=== PATIENT | female | born 1955 | race Caucasian/White ===

== ENCOUNTER 2017-06-18 13:46 | Outpatient (CLI) | payer OTHER ==
--- NOTE | 2017-07-09 15:48 | MMO ---
BILATERAL SCREENING MAMMOGRAM: Date: 06/18/17 COMPARISON: None. HISTORY: Screening examination. FINDINGS: This patient's mammogram was interpreted with the assistance of computer-aided detection. Scattered fibroglandular densities are present. There is an oblong focal asymmetry within the right breast on MLO imaging posteriorly measuring appro ximately 1.8 cm in greatest dimension. Benign calcification is seen on the left. A questionable correlate for the findings seen on right MLO imaging is seen medially on CC view. IMPRESSION: BIRADS 0: Incomplete: Need Additional Imaging Evaluation and/or Prior Mammograms for Comparison Focal asymmetry noted on right MLO imaging with possible medial correlate on CC view. Recommend spot magnification compression imaging and focused breast ultrasound. The facility will notify the patient of the need for additional imaging services. POS: [facility]
== END 2017-06-18 13:47 | disposition home or self-care (01) ==
LOC: SCSMAMMO 13:46
PROVIDERS: ATTEND Internal Medicine
DX: Z12.31 Encounter for screening mammogram for malignant neoplasm of breast (principal)
CPT/HCPCS: 77067

== ENCOUNTER 2017-07-16 10:07 | Outpatient (CLI) | payer OTHER | END 2017-07-16 10:08 | disposition home or self-care (01) | LOC: BICMAMMO 10:07 | PROVIDERS: ATTEND Internal Medicine | DX: R92.2 Inconclusive mammogram (principal) | CPT/HCPCS: G0279 ==

== ENCOUNTER 2017-07-23 12:29 | Outpatient (CLI) | payer OTHER ==
--- NOTE | 2017-07-23 12:57 | RAD ---
TWO VIEWS OF THE CHEST: COMPARISON: None. HISTORY: Dyspnea. FINDINGS: Two views of the chest show normal sized cardiomediastinal silhouette. There is no evidence of consol idation, mass, or pleural effusion. The bones are unremarkable. IMPRESSION: No evidence of acute cardiopulmonary disease. POS: [facility]
== END 2017-07-23 12:30 | disposition home or self-care (01) ==
LOC: RAD 12:29
PROVIDERS: ATTEND Internal Medicine
DX: R06.00 Dyspnea, unspecified (principal)
CPT/HCPCS: 71046

== ENCOUNTER 2018-01-25 13:32 | Outpatient (CLI) | payer OTHER ==
--- NOTE | 2018-01-25 15:18 | ULT ---
LIMITED RIGHT BREAST ULTRASOUND: 01/25/2018 PROVIDED CLINICAL HISTORY: Followup right breast mass. COMPARISON: 07/16/2017 FINDINGS: Limited sonographic interrogation at the 2 o'clock position of the right breast redemonstrates a mild ly complex, septated, cystic structure, measuring approximately 1.6 cm in greatest dimension. No sig nificant interval change with respect to prior. IMPRESSION: BI-RADS category 3-Probably benign findings. The patient will be due for annual bilateral mammography in six months, which should be scheduled as a diagnostic mammogram, with possible ultrasound. POS: [facility]
== END 2018-01-25 13:33 | disposition home or self-care (01) ==
LOC: BICULT 13:32
PROVIDERS: ATTEND Internal Medicine
DX: R92.8 Other abnormal and inconclusive findings on diagnostic imaging of breast (principal)

== ENCOUNTER 2018-02-16 13:02 | Outpatient (CLI) | payer OTHER ==
--- NOTE | 2018-02-16 15:09 | CT ---
CT ABDOMEN AND PELVIS WITH CONTRAST: Comparison: 10-26-17 History: Abdominal pain. History of Crohn's disease and diverticulosis as well as endometrial cancer. Patient states that abdominal pain is all over. Technique: Multiple contiguous axial images were obtained in a CT of the abdomen and pelvis with cont rast. PO contrast was administered. Coronal reformats were performed. FINDINGS: The gallbladder has been removed. The patient is status post hysterectomy. The liver, kidneys, adrena l glands, spleen, and pancreas are unremarkable. There is a small hyperdensity within the common bile duct which is nonspecific but could represent a common bile duct stone. There is no significant bili aruna dilatation. There is scattered diverticula in the sigmoid colon. The small bowel is unremarkable. No abdominal or pelvic lymphadenopathy are seen. Degenerative changes are seen in the spine. The visualized inferior thorax and abdominal wall soft ti ssues are unremarkable. IMPRESSION: 1. No evidence of acute intraabdominal/pelvic abnormality. 2. Possible small common bile duct stone. POS: [facility]
[2018-02-16] MEDS ORDERED: ISOVUE-370 76%-LOCM 1 ML ONE (15:54)
== END 2018-02-16 13:03 | disposition home or self-care (01) ==
LOC: BICCT 13:02
PROVIDERS: ATTEND Internal Medicine
DX: R10.9 Unspecified abdominal pain (principal)
CPT/HCPCS: 74177

== ENCOUNTER 2018-05-07 15:24 | Emergency (ER) | payer OTHER, SELFPAY ==
[~2018-05-07 15:24] MED LIST: ISOVUE-370 76%-LOCM 1 ML ONE
[2018-05-07 16:24] LABS: #Lymphocytes 0.8 thou/uL (1.20-3.40); #Monocytes 0.4 thou/uL (0.11-0.59); #Neutrophils 10.1 thou/uL (1.40-6.50); %Basophils 0.3 % (0.0-1.0); %Lymphocytes 7.2 % (21.0-51.0); %Monocytes 3.4 % (0.0-10.0); %Neutrophils 89.1 % (42.0-75.0); Hemoglobin 15.7 g/dL (12.0-16.0); Mean Corpuscular HGB CONC 33.2 g/dL (32.0-36.0); Mean Corpuscular Hemoglobin 30.5 pg (27.0-31.0); Mean Corpuscular Volume 91.9 fL (78.0-98.0); Mean Platelet Volume 7.3 fL (7.4-10.4); Platelet Count 337 thou/uL (130-400); RBC Distribution Width 11.9 % (11.5-14.5); Red Blood Cell (RBC) Count 5.15 mill/uL (4.20-5.40); White Blood Cell (WBC) Count 11.4 thou/uL (4.8-10.8)
[2018-05-07 16:48] LABS: ALT (SGPT) 29 U/L (8-55); AST (SGOT) 25 U/L (5-34); Albumin 4.5 g/dL (3.4-4.8); Alkaline Phosphatase 89 U/L (40-150); Anion Gap 14 mmol/L (10-20); BUN (Urea Nitrogen) 16 mg/dL (9.8-20.1); Bilirubin, Total 0.8 mg/dL (0.2-1.2); Calc. Creatinine Clearance 0 mL/min (70-130); Calcium 9.6 mg/dL (7.8-10.44); Carbon Dioxide 24 mmol/L (23-31); Chloride 106 mmol/L (98-107); Estimated GFR-MDRD 49; Globulin 3.5 g/dL (2.4-3.5); Glucose 108 mg/dL (80-115); Lipase 25 U/L (8-78); Potassium 3.9 mmol/L (3.5-5.1); Sodium 140 mmol/L (136-145)
[2018-05-07] MEDS ORDERED: Ondansetron PF 4 MG/2 ML Vial ONE (17:49)
[2018-05-07] MEDS ORDERED: Morphine 4 MG/ML VIAL ONE ×2 (18:19→18:20)
[2018-05-07 18:47] LABS: Bilirubin Small (Negative); Blood, Urine Negative (Negative); Clarity CLEAR (Clear); Glucose, Urine (Dipstick) Negative (Negative); Leukocyte Negative (Negative); Nitrite Negative (Negative); Protein, Urine (Dipstick) 30 mg/dL (Neg-Trace); Specific Gravity, Urine 1.028 (1.002-1.036); Urobilinogen 0.2 mg/dL (0.2-1.0); pH, Urine 5.5 (5.0-9.0)
[2018-05-07 18:49] LABS: Bacteria/HPF None Seen HPF (None Seen); Hyaline Casts/LPF 4-6 HYALINE CAST LPF (0-3 Hyaline); Pathc Cast-AUWi Flag 1.01 (0-2.49); Squamous Epithelial 0-3 HPF (0-3); WBC/HPF 0-3 HPF (0-3)
[2018-05-07 19:11] LABS: RBC/HPF 0-3 HPF (0-3)
--- NOTE | 2018-05-07 19:57 | CT ---
CT ABDOMEN AND PELVIS WITH IV CONTRAST 05/07/18 HISTORY: Abdominal pain. Nausea and vomiting. COMPARISON: 02/16/18. FINDINGS: Lung bases are clear. Gallbladder is not visualized, presumed surgically absent. Common duct is now d ecompressed without stone apparent. No enlarged lymph nodes or free fluid. No evidence of bowel inflammation or obstruction. Appendix is not inflamed. IMPRESSION: No significant abnormalities are demonstrated. POS: [facility]
== END 2018-05-07 20:34 | disposition home or self-care (01) ==
LOC: ERS 15:24
DX: E86.0 Dehydration (principal); J45.909 Unspecified asthma, uncomplicated; K58.9 Irritable bowel syndrome, unspecified; F32.9 Major depressive disorder, single episode, unspecified
CPT/HCPCS: 36415; 74177; 80053; 81003; 81015; 83690; 85025; 96361; 96374; J2270; J2405; Q9966

== ENCOUNTER 2018-07-09 11:09 | Outpatient (CLI) | payer OTHER ==
--- NOTE | 2018-07-09 11:32 | RAD ---
F2 views chest: 07/09/2018 COMPARISON: 07/23/2017 HISTORY: Hiatal hernia FINDINGS: Heart and mediastinal contours are stable. No pneumothorax or pleural fluid. No focal conso lidation or alveolar edema. No radiographic evidence of hiatal hernia noted. IMPRESSION: No acute findings.
== END 2018-07-09 11:10 | disposition home or self-care (01) ==
LOC: BICRAD 11:09
PROVIDERS: ATTEND Internal Medicine
DX: K44.9 Diaphragmatic hernia without obstruction or gangrene (principal)
CPT/HCPCS: 71046

== ENCOUNTER 2018-07-21 13:56 | Outpatient (CLI) | payer OTHER ==
--- NOTE | 2018-07-21 14:59 | MMO ---
Bilateral MAMMO Bilat Diag [facility]DI+JENNY. CLINICAL HISTORY: Patient is 63 years old and is seen for diagnostic exam. The patient has no family history of breast cancer. The patient has a history of uterine cancer at age 62. VIEWS: The views performed were: bilateral craniocaudal with tomosynthesis; bilateral mediolateral oblique with tomosynthesis; and bilateral mediolateral. FILMS COMPARED: The present examination has been compared to prior imaging studies performed at [facility] on 07/16/2017 and 07/21/2018, at [facility] on 06/18/2017, and at [facility] on 08/21/2010, 10/02/2010, 02/12/2013, 04/01/2014, 04/04/2015 and 03/28/2016. MAMMOGRAM FINDINGS: There are scattered fibroglandular densities. There is a stable oval mass with circumscribed margins seen in the right breast at 2 o'clock. The mass was shown to be a cyst on ultrasound. There are no suspicious masses, suspicious calcifications, or new areas of architectural distortion. IMPRESSION: THERE IS NO MAMMOGRAPHIC EVIDENCE OF MALIGNANCY. A ROUTINE FOLLOW-UP MAMMOGRAM IN 1 YEAR IS RECOMMENDED. THE RESULTS OF THIS EXAM WERE SENT TO THE PATIENT. ACR BI-RADS Category 2 - Benign finding MAMMOGRAPHY NOTE: 1. A negative mammogram report should not delay a biopsy if a dominant of clinically suspicious mass is present. 2. Approximately 10% to 15% of breast cancers are not detected by mammography. 3. Adenosis and dense breasts may obscure an underlying neoplasm.
--- NOTE | 2018-07-21 15:12 | ULT ---
RIGHT BREAST ULTRASOUND: COMPARISON: 01/25/2018. HISTORY: Right breast complex cyst versus cluster of cysts seen on prior ultrasound. Short interval followup exam. TECHNIQUE: Multiplanar manzanares scale and color Doppler images were obtained in a right breast ultrasound. FINDINGS: In the 2 o'clock position of the right breast approximately 3 cm from the nipple, there is a stable c luster of anechoic structures which likely represents a cluster of cysts. This measures 1.7 cm in gr eatest dimension. No suspicious shadowing or solid mass is seen. IMPRESSION: BIRADS category 2 - benign findings. Annual screening mammography is recommended. POS: [facility]
== END 2018-07-21 13:57 | disposition home or self-care (01) ==
LOC: BICMAMMO 13:56
PROVIDERS: ATTEND Internal Medicine
DX: N63.12 Unspecified lump in the right breast, upper inner quadrant (principal); Z85.42 Personal history of malignant neoplasm of other parts of uterus
CPT/HCPCS: 77066; G0279

== ENCOUNTER 2018-09-09 07:57 | Outpatient (CLI) | payer OTHER ==
--- NOTE | 2018-09-09 15:53 | NM ---
RADIONUCLIDE GASTRIC EMPTYING SCAN: HISTORY: Nausea, vomiting, unspecified. RADIOPHARMACEUTICAL: 2 mCi Technetium 99m sulfur colloid administered orally in scrambled eggs. FINDINGS: There is 37% emptying of the ingested gastric contents at 1 hours, 59% emptying at 2 hours, 63% empty ing at 3 hours, and 89% emptying at 4 hours. The calculated gastric emptying half-time measures 105 minutes. IMPRESSION: Delayed gastric emptying. POS: [facility]
== END 2018-09-09 07:58 | disposition home or self-care (01) ==
LOC: NM 07:57
DX: R11.2 Nausea with vomiting, unspecified (principal)
CPT/HCPCS: 78264; A9541

== ENCOUNTER 2018-11-03 08:52 | Outpatient (CLI) | payer OTHER | END 2018-11-03 08:53 | disposition home or self-care (01) | LOC: CP 08:52 | PROVIDERS: ATTEND Internal Medicine | DX: J45.909 Unspecified asthma, uncomplicated (principal) | CPT/HCPCS: 94060; 94727; 94729 ==

== ENCOUNTER 2018-12-08 11:33 | Outpatient (CLI) | payer OTHER ==
--- NOTE | 2018-12-08 13:47 | RAD ---
LEFT HAND THREE VIEWS: 12/08/18 HISTORY: Hand pain. Some mild arthritic changes of the first carpometacarpal joint space and first metacarpophalangeal audrey int. There is no signs of fracture. IMPRESSION: Mild arthritic changes of the hand. POS: [facility]
--- NOTE | 2018-12-08 13:48 | RAD ---
RIGHT HAND 3 VIEWS: Date: 12/08/18 HISTORY: Hand pain. FINDINGS: Some minimal arthritic changes are noted of the interphalangeal joints and some very minimal change o f the first metacarpophalangeal joint and triscaphe joint. No fracture or other findings. IMPRESSION: Minimal arthritic changes of the hand. POS: [facility]
--- NOTE | 2018-12-08 13:52 | RAD ---
CERVICAL SPINE 4 VIEWS: Date: 12/08/18 HISTORY: Neck pain with bilateral hand radiculopathy. FINDINGS: Straightening of the normal lordotic curvature. Disc space narrowing at the C5-6 and C6-7 levels. Min imal degenerative retrolisthesis at the C6-7 level. Osteophytosis throughout the lower vertebral bodi es and facets. Mild rightward convex curvature. No acute fracture or dislocation. Cervicothoracic andrea ction intact. IMPRESSION: Prominent osseous degenerative changes lower cervical spine. No acute osseous abnormalities demonstra isabel. If radicular or other neurologic symptoms are present, MRI cervical spine may be warranted. POS: [facility]
== END 2018-12-08 11:34 | disposition home or self-care (01) ==
LOC: BICRAD 11:33
PROVIDERS: ATTEND Internal Medicine
DX: M54.2 Cervicalgia (principal); M79.641 Pain in right hand; M79.642 Pain in left hand; M47.812 Spondylosis without myelopathy or radiculopathy, cervical region; M19.042 Primary osteoarthritis, left hand; M19.041 Primary osteoarthritis, right hand
CPT/HCPCS: 72040

== ENCOUNTER 2018-12-23 15:28 | Outpatient (CLI) | payer OTHER ==
--- NOTE | 2018-12-23 16:27 | RAD ---
LUMBAR SPINE RADIOGRAPHS 2 VIEWS: Date: 12/23/18 PROVIDED CLINICAL HISTORY: Lumbar radiculopathy. FINDINGS: Five non-rib bearing lumbar-type vertebral bodies are present. Lumbar alignment appears normal. Verte bral body heights are preserved. Intervertebral disc space heights appear preserved. Mild end plate d egenerative change. Mild lower lumbar facet arthritis. Pedicles appear intact. IMPRESSION: Mild lumbar degenerative change. POS: [facility]
--- NOTE | 2018-12-23 16:28 | RAD ---
RIGHT KNEE 4 VIEWS: Date: 12/23/18 PROVIDED CLINICAL HISTORY: Pain. FINDINGS: No evidence for fracture or other acute osseous abnormality. Alignment appears anatomic. Joint spaces appear preserved. IMPRESSION: No evidence for an acute osseous abnormality or significant arthropathy. POS: [facility]
--- NOTE | 2018-12-23 16:29 | RAD ---
LEFT KNEE 4 VIEWS: Date: 12/23/18 PROVIDED CLINICAL HISTORY: Pain. FINDINGS: No evidence for fracture or other acute osseous abnormality. Alignment appears anatomic. Joint spaces appear preserved. No evidence for significant knee joint capsular distention. IMPRESSION: No evidence for an acute osseous abnormality or significant arthropathy. POS: [facility]
== END 2018-12-23 15:29 | disposition home or self-care (01) ==
LOC: BICRAD 15:28
PROVIDERS: ATTEND Internal Medicine
DX: M47.26 Other spondylosis with radiculopathy, lumbar region (principal); M25.562 Pain in left knee; M25.561 Pain in right knee
CPT/HCPCS: 72100

== ENCOUNTER 2019-01-21 10:19 | Outpatient (CLI) | payer OTHER ==
--- NOTE | 2019-01-21 12:56 | MRI ---
MRI OF CERVICAL SPINE WITHOUT CONTRAST: INDICATION: Myelopathy. Neck pain. Bilateral hand and arm pain. FINDINGS: Cervical vertebrae maintain height and alignment. Vertebral body signal is normal. There is a verte bral body hemangioma at T2 vertebra. Mild loss of disk space and moderate degenerative change at C5-6 and C6-7. Anterior and lateral oste ophytes at thee levels. At C2-3, no significant disk bulge or spondylosis. At C3-4, there is a broad-based disk bulge with spondylosis which abuts and mildly flattens the anter ior cord. No significant foraminal stenosis apparent. At C4-5, mild disk bulge and spondylosis efface the anterior subarachnoid space. No cord impingement . No foraminal stenosis. At C5-6, diffuse disk bulge and spondylosis impinge on a mildly flattened anterior cord. Mild bilate ral foraminal narrowing due to disk bulge and uncinate hypertrophy. At C6-7, disk bulge and spondylosis abut and mildly flatten the anterior cord. Asymmetric disk bulge and spondylitic change to the right is seen encroaching into the right foramina. There is also left foraminal encroachment due to disk bugle and uncinate hypertrophy. These changes may impinge on bot h of the exiting C7 nerve roots. Cord signal appears normally preserved. IMPRESSION: Prominent disk bulge and spondylitic change at C3-4, C5-6, and C6-7 levels. Cord impingement is most pronounced at C5-6. There is foraminal encroachment as described above. POS: [facility]
== END 2019-01-21 10:20 | disposition home or self-care (01) ==
LOC: TBSIIMAG 10:19
PROVIDERS: ATTEND Psychiatry & Neurology Neurology
DX: G95.9 Disease of spinal cord, unspecified (principal); M46.92 Unspecified inflammatory spondylopathy, cervical region; M25.80 Other specified joint disorders, unspecified joint; M50.81 Other cervical disc disorders, high cervical region
CPT/HCPCS: 72141

== ENCOUNTER 2019-08-04 12:35 | Outpatient (CLI) | payer OTHER ==
--- NOTE | 2019-08-04 14:26 | CT ---
CT ABDOMEN AND PELVIS: DATE: 08/04/2019. PROVIDED CLINICAL HISTORY: Hematuria. FINDINGS: Comparison is made with the study dated 05/07/2018. The visualized lung bases are free of significant opacity. There is diffuse fatty infiltration of the liver. There is a stable right renal cyst. There is no e vidence for hydronephrosis. There is a tiny nonobstructing inferior pole left renal calculus. The s olid abdominal organs demonstrate an otherwise unremarkable CT appearance. Numerous sigmoid colonic diverticula are seen. There is inflammatory fat stranding seen about the pr oximal sigmoid colon with several foci of extraluminal gas. There is no evidence for free intraperit samuel air or a focal fluid collection to suggest abscess. There is no bowel dilatation, additional inflammatory fat stranding, or free fluid apparent. The osseous structures demonstrate no concerning lytic or blastic lesions. Partial ankylosis of each SI joint is noted, compatible with arthropathy associated with the provided clinical history of Croh n's disease. The delayed images demonstrate no evidence for filling defects involving the renal collecting systems , ureters, or urinary bladder. IMPRESSION: 1. Findings compatible with perforated sigmoid diverticulitis. No evidence for abscess. Findings c ommunicated to the referring clinician's office 2:05 p.m. 08/04/2019. 2. Tiny nonobstructing inferior pole left renal calculus. CODE CR POS: [facility]
== END 2019-08-04 12:36 | disposition home or self-care (01) ==
LOC: BICCT 12:35
PROVIDERS: ATTEND Internal Medicine
DX: R31.29 Other microscopic hematuria (principal); N20.0 Calculus of kidney
CPT/HCPCS: 74178

== ENCOUNTER 2019-08-04 15:08 | Inpatient (IN) | payer OTHER ==
[2019-08-04 16:24] LABS: #Basophils 0.1 thou/uL (0.0-0.2); #Eosinphils 0.1 thou/uL (0.0-0.7); #Lymphocytes 2.9 thou/uL (1.20-3.40); #Monocytes 1.1 thou/uL (0.11-0.59); #Neutrophils 8.7 thou/uL (1.40-6.50); %Basophils 1.1 % (0.0-1.0); %Eosinophils 0.7 % (0.0-10.0); %Lymphocytes 22.6 % (21.0-51.0); %Monocytes 8.3 % (0.0-10.0); %Neutrophils 67.2 % (42.0-75.0); Hemoglobin 13.8 g/dL (12.0-16.0); Mean Corpuscular Hemoglobin 31.5 pg (27.0-31.0); Mean Corpuscular Volume 95.4 fL (78.0-98.0); Mean Platelet Volume 6.9 fL (7.4-10.4); Platelet Count 271 thou/uL (130-400); RBC Distribution Width 12.7 % (11.5-14.5); Red Blood Cell (RBC) Count 4.37 mill/uL (4.20-5.40); White Blood Cell (WBC) Count 12.9 thou/uL (4.8-10.8)
[2019-08-04] MEDS ORDERED: Morphine 4 MG/ML VIAL ONE (16:40)
[2019-08-04] MEDS ORDERED: metroNIDAZOLE 500 MG/100 ML BAG ONE (16:42)
[2019-08-04 16:47] LABS: ALT (SGPT) 39 U/L (8-55); AST (SGOT) 24 U/L (5-34); Albumin 4.1 g/dL (3.4-4.8); Alkaline Phosphatase 50 U/L (40-110); Anion Gap 15 mmol/L (10-20); BUN (Urea Nitrogen) 12 mg/dL (9.8-20.1); Bilirubin, Total 1.3 mg/dL (0.2-1.2); Calc. Creatinine Clearance 0 mL/min (70-130); Calcium 9.5 mg/dL (7.8-10.44); Carbon Dioxide 25 mmol/L (23-31); Chloride 102 mmol/L (98-107); Estimated GFR-MDRD 53; Globulin 2.8 g/dL (2.4-3.5); Glucose 105 mg/dL (80-115); Potassium 3.4 mmol/L (3.5-5.1); Protein, Total 6.9 g/dL (6.0-8.3); Sodium 139 mmol/L (136-145)
[2019-08-04] MEDS ORDERED: Piperacillin/Tazobactam 4.5 GM VIAL ONE (18:53)
[2019-08-04] MEDS ORDERED: Morphine 2 MG/ML SYRINGE SLOW IVP PRN (19:11)
[2019-08-04] MEDS ORDERED: Ondansetron PF 4 MG/2 ML Vial IVP PRN (19:12)
[2019-08-04] MEDS ORDERED: Potassium Chloride 20 MEQ TAB PO SCH (19:30)
[2019-08-04] MEDS: Sodium Chloride 0.9% 1,000 ML IV SCH (21:01)
--- NOTE | 2019-08-04 21:33 | HP ---
CHIEF COMPLAINT: Abdominal pain. HISTORY OF PRESENT ILLNESS: The patient is a 64-year-old female with history of hypertension, peripheral neuropathy, and recurrent diverticulitis, who presented to the hospital with complaints of worsening lower abdominal pain since yesterday. Her symptoms were associated with nausea and vomiting. In the ER, her initial workup including CT scan of the abdomen and pelvis revealed diverticulitis with microperforation. Surgical service consulted and recommended medical management. REVIEW OF SYSTEMS: Negative except as noted in HPI. PAST MEDICAL HISTORY: Polyneuropathy, anxiety, hypertension, reactive airway disease, and recurrent diverticulitis. PAST SURGICAL HISTORY: Hysterectomy and cholecystectomy. ALLERGIES: KEFLEX AND SUCRALOSE. SOCIAL HISTORY: The patient denies alcohol, smoking, or illicit drug use. PHYSICAL EXAMINATION: GENERAL: The patient is alert and oriented x3. HEENT: Head is normocephalic and atraumatic. NECK: Supple. CHEST: Clear to auscultation bilaterally. CARDIAC: Revealed normal S1, S2. Regular rate and rhythm. ABDOMEN: Soft, tender in the left and right lower quadrants, nondistended, and bowel sounds are positive. NEUROLOGIC: Unremarkable. ASSESSMENT: 1. Sepsis. 2. Acute diverticulitis with microperforation. 3. Hypokalemia. 4. Dehydration. PLAN: We will admit the patient to the medical floor. Clear liquid diet. Start IV Zosyn and IV fluids. Morphine for pain and Zofran for nausea. We will follow the patient's progress and consult Surgery as needed. Job ID: [id number]
[2019-08-04 22:56] VITALS: BMI 37.3
[2019-08-05] MEDS: Piperacillin/Tazobactam 3.375 GM in Sodium Chloride 0.9% 100 ML IVPB SCH ×5 (00:59→23:38)
[2019-08-05] MEDS: Sodium Chloride 0.9% 1,000 ML IV SCH ×4 (04:00→20:09)
[2019-08-05 05:43] LABS: #Basophils 0.1 thou/uL (0.0-0.2); #Eosinphils 0.1 thou/uL (0.0-0.7); #Lymphocytes 1.4 thou/uL (1.20-3.40); #Monocytes 0.6 thou/uL (0.11-0.59); %Basophils 1.3 % (0.0-1.0); %Eosinophils 1.9 % (0.0-10.0); %Lymphocytes 18.7 % (21.0-51.0); %Monocytes 8.6 % (0.0-10.0); %Neutrophils 69.5 % (42.0-75.0); Hemoglobin 12.3 g/dL (12.0-16.0); Mean Corpuscular HGB CONC 34.8 g/dL (32.0-36.0); Mean Corpuscular Hemoglobin 33.2 pg (27.0-31.0); Mean Corpuscular Volume 95.3 fL (78.0-98.0); Platelet Count 203 thou/uL (130-400); RBC Distribution Width 12.5 % (11.5-14.5); Red Blood Cell (RBC) Count 3.69 mill/uL (4.20-5.40); White Blood Cell (WBC) Count 7.2 thou/uL (4.8-10.8)
[2019-08-05 06:01] LABS: Anion Gap 14 mmol/L (10-20); BUN (Urea Nitrogen) 8 mg/dL (9.8-20.1); Calc. Creatinine Clearance 109 mL/min (70-130); Calcium 8.2 mg/dL (7.8-10.44); Carbon Dioxide 23 mmol/L (23-31); Chloride 106 mmol/L (98-107); Estimated GFR-MDRD 71; Glucose 94 mg/dL (80-115); Potassium 3.7 mmol/L (3.5-5.1); Sodium 139 mmol/L (136-145)
[2019-08-05] MEDS: Enoxaparin Sodium 30 MG/0.3 ML SYRINGE SC SCH (08:21)
[2019-08-05] MEDS ORDERED: predniSONE 20 MG TAB PO SCH ×2 (09:00→10:30)
[2019-08-05] MEDS ORDERED: FLUTICASONE FUROATE EA NARE SCH (09:00)
[2019-08-05] MEDS ORDERED: Pantoprazole 40 MG GRANULES PACKET PO SCH ×2 (09:00→10:30)
[2019-08-05] MEDS ORDERED: Lisinopril 10 MG TAB PO SCH (09:00)
[2019-08-05] MEDS ORDERED: Fluticasone Propionate Nasal Spray 16 gm Bottle NASAL SCH (10:30)
[2019-08-05] MEDS: Lisinopril 10 MG TAB PO SCH (11:39)
[2019-08-05] MEDS: Escitalopram Oxalate 10 mg Tablet PO SCH (11:40)
[2019-08-05] MEDS: OXcarbazepine 300 MG TAB PO SCH ×2 (11:40→20:08)
--- NOTE | 2019-08-05 11:54 | PDOC.HOSPP ---
- Subjective Encounter Date: 08/05/19 Subjective: Feels better today. Tolerating liquid diet. - Objective Vital Signs & Weight: Vital Signs (12 hours) Temp Pulse Resp BP BP Pulse Ox 08/05/19 11:39 138/78 08/05/19 11:29 98.7 F 84 18 130/78 95 08/05/19 08:00 92 L 08/05/19 07:44 98.4 F 90 18 118/72 92 L 08/05/19 07:00 98.4 F 90 18 118/72 92 L 08/05/19 03:55 98.7 F 89 16 114/62 93 L Weight Weight 217 lb 3.2 oz Result Diagrams: 08/05/19 05:18 08/05/19 05:18 Hospitalist ROS - Medication Medications: Active Medications Generic Name Dose Route Start Last Admin Trade Name Freq PRN Reason Stop Dose Admin Enoxaparin Sodium 30 mg 08/05/19 09:00 08/05/19 08:21 Lovenox SC 30 mg 0900 OTIS Administration Escitalopram Oxalate 10 mg 08/05/19 09:00 08/05/19 11:40 Lexapro PO 10 mg DAILY OTIS Administration Piperacillin Sod/Tazobactam 100 mls @ 200 mls/hr 08/04/19 23:59 08/05/19 11: 41 Sod 3.375 gm/ Sodium Chloride IVPB 100 mls Q6HR OTIS Administration Sodium Chloride 1,000 mls @ 150 mls/hr 08/04/19 19:15 08/05/19 04:00 Normal Saline 0.9% IV 1,000 mls .[id number] OTIS Administration Lisinopril 10 mg 08/05/19 09:00 08/05/19 11:39 Zestril PO 10 mg DAILY OTIS Administration Morphine Sulfate 2 mg 08/04/19 19:11 08/05/19 06:19 Morphine SLOW IVP 2 mg Q4H PRN Administration Pain Oxcarbazepine 300 mg 08/05/19 09:00 08/05/19 11:40 Trileptal PO 300 mg BID OTIS Administration Pantoprazole Sodium 40 mg 08/05/19 10:30 08/05/19 11:39 Protonix PO 08/05/19 12:00 40 mg NOW OTIS Administration Prednisone 20 mg 08/05/19 10:30 08/05/19 11:39 Prednisone PO 08/05/19 12:00 20 mg NOW OTIS Administration - Exam General Appearance: NAD, awake alert ENT: normocephalic atraumatic Neck: supple, no JVD Heart: RRR Respiratory: normal chest expansion, no tachypnea Gastrointestinal: soft, non-distended, tender to palpation Neurological: cranial nerve grossly intact, no focal deficits Hosp A/P (1) Sepsis Code(s): A41.9 - SEPSIS, UNSPECIFIED ORGANISM Status: Acute (2) Acute diverticulitis Code(s): K57.92 - DVTRCLI OF INTEST, PART UNSP, W/O PERF OR ABSCESS W/O BLEED Status: Acute (3) Perforated diverticulum Code(s): K57.80 - DVTRCLI OF INTEST, PART UNSP, W PERF AND ABSCESS W/O BLEED Status: Acute - Plan Clinically improving. Leukocytosis resolved. Continue IV Zosyn and IVF. Clear liquid diet.
[2019-08-05] MEDS: Loratadine 10 MG TAB PO SCH (20:09)
--- NOTE | 2019-08-05 20:25 | CON ---
DATE OF CONSULTATION: 08/04/2019 CHIEF COMPLAINT: Perforated diverticulitis. HISTORY OF PRESENT ILLNESS: The patient is an obese, 64-year-old white female. She gives a history of diverticulitis, for which she was admitted to the hospital in approximately 2012. She has had at least one episode of fairly severe diverticulitis since then. She developed onset of lower abdominal pain became progressively severe over the past couple of days. A CT scan was obtained on an outpatient basis earlier yesterday. This revealed evidence of microperforated diverticulitis with obvious air that was extraluminal. She presented to the emergency room, where she underwent laboratory evaluation. She was admitted to the Hospitalist Service and I am seeing her in consultation regarding this. She tells me she has had several colonoscopies, most recently, she believes within the past couple of years. This was apparently performed in [place]. She tells me that she has no issues with constipation, but does have fairly significant problems with intermittent diarrhea. She also gives a recent history of hematuria. This was being evaluated by Dr. Newsome (her primary care physician). The patient was scheduled for an outpatient Urology evaluation in regard to the hematuria for this upcoming week. Review of her recent urinalysis reveal 4 to 6 red blood cells both in June and in July on her urinalysis. PAST MEDICAL HISTORY: 1. Polyneuropathy. 2. Anxiety. 3. Hypertension. 4. Reactive airway disease. 5. Recurrent diverticulitis. PAST SURGICAL HISTORY: 1. Hysterectomy performed in [place] in 2018. 2. Open cholecystectomy estimated 40 years ago. 3. Open surgery for bile duct reconstruction following her cholecystectomy. 4. Cataract surgery. 5. ERCP for a pancreatic duct stone. MEDICATIONS: Include: 1. Prednisone (for the polyneuropathy). 2. Lisinopril. 3. Escitalopram. 4. Pantoprazole. 5. Couple of other medications. ALLERGIES: KEFLEX AND SUCRALOSE. PERSONAL AND SOCIAL HISTORY: She is with one child. She does not smoke nor does she drink alcohol. She did formally smoked, but quit about 14 years ago. REVIEW OF SYSTEMS: Otherwise, unremarkable. FAMILY HISTORY: Noncontributory. PHYSICAL EXAMINATION: VITAL SIGNS: She is afebrile. Pulse is 84 and blood pressure 138/78. GENERAL: She is a well-developed, well-nourished, obese white female, resting in bed, in no acute distress. She is alert and oriented x3, and conversant. HEAD, EYES, EARS, NOSE, AND THROAT: Unremarkable. NECK: Supple. LUNGS: Clear to auscultation. CARDIAC: Regular rate and rhythm. ABDOMEN: Soft with hypoactive, but present bowel sounds. She has focal tenderness in the left lower quadrant with no significant tenderness elsewhere. She has well-healed incisions in her upper midline and right upper quadrant. EXTREMITIES: Unremarkable. LABORATORY DATA: Her white blood cell count of presentation yesterday afternoon was 12.9, it is down to 7.2 this morning. Her hemoglobin today is 12.3. Her platelet count is normal at 203. Her electrolytes are entirely normal as is her glucose and her lactic acid level. Her liver function tests are essentially normal. I reviewed her CT scan when she presented yesterday. This is clearly consistent with microperforated diverticulitis. ASSESSMENT AND PLAN: The patient with a second episode of microperforated diverticulitis. In light of the recurrent nature and the complication of her diverticulitis, taking in consideration of her chronic steroid use, I would certainly recommend an elective colectomy after this acute episode has resolved. I believe that she is resolving quickly with conservative management. She is on appropriate IV antibiotics and bowel rest. She may safely resume a clear liquid diet today. Advance her diet slowly over the next day or two while continued on IV antibiotics. When she is tolerating adequate oral intake with resolution of the vast majority of her pain, she will be ready for discharge home with a further course of oral antibiotics. I suspect it will be early next week (today is Thursday). I do not anticipate that she will require surgical care over the next few days and I will therefore see her again on Thursday. If she has surgical problems over the weekend, please contact Dr. Stuart. In regard to her hematuria, I have consulted Dr. Hess to see her and evaluate her as he feels appropriate. Job ID: [id number]
[2019-08-05] MEDS ORDERED: Non-Formulary Item 1 EACH (Levocetirizine Dihydrochloride [Levocetirizine Dihydrochloride PO SCH (21:00)
[2019-08-06 05:23] LABS: #Eosinphils 0.1 thou/uL (0.0-0.7); #Lymphocytes 1.6 thou/uL (1.20-3.40); #Monocytes 0.5 thou/uL (0.11-0.59); %Basophils 0.9 % (0.0-1.0); %Lymphocytes 30.7 % (21.0-51.0); %Neutrophils 56.5 % (42.0-75.0); Hemoglobin 12.3 g/dL (12.0-16.0); Mean Corpuscular HGB CONC 33.8 g/dL (32.0-36.0); Mean Corpuscular Hemoglobin 32.5 pg (27.0-31.0); Mean Corpuscular Volume 96.2 fL (78.0-98.0); Mean Platelet Volume 6.8 fL (7.4-10.4); Platelet Count 233 thou/uL (130-400); RBC Distribution Width 12.4 % (11.5-14.5); Red Blood Cell (RBC) Count 3.78 mill/uL (4.20-5.40); White Blood Cell (WBC) Count 5.2 thou/uL (4.8-10.8)
[2019-08-06 05:40] LABS: Anion Gap 11 mmol/L (10-20); BUN (Urea Nitrogen) 4 mg/dL (9.8-20.1); Calc. Creatinine Clearance 118 mL/min (70-130); Calcium 8.5 mg/dL (7.8-10.44); Carbon Dioxide 26 mmol/L (23-31); Chloride 109 mmol/L (98-107); Estimated GFR-MDRD 78; Glucose 95 mg/dL (80-115); Potassium 3.1 mmol/L (3.5-5.1); Sodium 143 mmol/L (136-145)
[2019-08-06] MEDS: Piperacillin/Tazobactam 3.375 GM in Sodium Chloride 0.9% 100 ML IVPB SCH ×4 (05:48→22:58)
[2019-08-06] MEDS: Lisinopril 10 MG TAB PO SCH (08:59)
[2019-08-06] MEDS: predniSONE 20 MG TAB PO SCH (08:59)
[2019-08-06] MEDS: OXcarbazepine 300 MG TAB PO SCH ×2 (08:59→21:22)
[2019-08-06] MEDS: Pantoprazole 40 MG GRANULES PACKET PO SCH (08:59)
[2019-08-06] MEDS: Escitalopram Oxalate 10 mg Tablet PO SCH (08:59)
[2019-08-06] MEDS: Sodium Chloride 0.9% 1,000 ML IV SCH ×2 (09:06→12:52)
[2019-08-06] MEDS ORDERED: Potassium Chloride 20 MEQ TAB PO SCH ×2 (10:15→22:30)
[2019-08-06] MEDS: Enoxaparin Sodium 30 MG/0.3 ML SYRINGE SC SCH (10:35)
[2019-08-06] MEDS: Fluticasone Propionate Nasal Spray 16 gm Bottle NASAL SCH (15:16)
[2019-08-06] MEDS: D5 1/2 NS w/20 mEq KCL 1,000 ML IV SCH (17:37)
--- NOTE | 2019-08-06 18:58 | PDOC.HOSPP ---
- Subjective Encounter Date: 08/06/19 Encounter Time: 12:40 Subjective: The patient reports that she tolerated clear liquids well. Her abdominal pain has improved. She is anxious to upgrade her diet. Patient states that she prefers IV antibiotics over oral because she gets nauseous with oral antibiotics. She also reports getting severe nausea and pain when she has anything with splenda in it. - Objective Vital Signs & Weight: Vital Signs (12 hours) Temp Pulse Resp BP BP Pulse Ox 08/06/19 15:18 98.6 F 85 16 123/73 94 L 08/06/19 10:57 97.8 F 84 18 114/71 95 08/06/19 08:59 138/78 08/06/19 07:41 97.9 F 84 20 134/76 94 L Weight Weight 217 lb 3.2 oz I&O: 08/05/19 08/06/19 08/07/19 06:59 06:59 06:59 Intake Total 3200 Output Total 0 Balance 3200 Result Diagrams: 08/06/19 05:07 08/06/19 05:07 Hospitalist ROS - Review of Systems Constitutional: denies: fever, chills - Medication Medications: Active Medications Generic Name Dose Route Start Last Admin Trade Name Freq PRN Reason Stop Dose Admin Enoxaparin Sodium 30 mg 08/05/19 09:00 08/06/19 10:35 Lovenox SC 30 mg 0900 OTIS Administration Escitalopram Oxalate 10 mg 08/05/19 09:00 08/06/19 08:59 Lexapro PO 10 mg DAILY OTIS Administration Fluticasone Propionate 0 gm 08/06/19 09:00 08/06/19 15:16 Flonase Nasal [place] NASAL Not Given DAILY OTIS Piperacillin Sod/Tazobactam 100 mls @ 200 mls/hr 08/04/19 23:59 08/06/19 17: 37 Sod 3.375 gm/ Sodium Chloride IVPB 100 mls Q6HR OTIS Administration Potassium Chloride/Dextrose/Sod Cl 1,000 mls @ 75 mls/hr 08/06/19 14:45 08/05 17:37 D5 1/2 Ns W/20 Meq Kcl IV 1,000 mls .[id number] OTIS Administration Lisinopril 10 mg 08/05/19 09:00 08/06/19 08:59 Zestril PO 10 mg DAILY OTIS Administration Loratadine 10 mg 08/05/19 21:00 08/05/19 20:09 Claritin PO 10 mg HS OTIS Administration Morphine Sulfate 2 mg 08/04/19 19:11 08/05/19 06:19 Morphine SLOW IVP 2 mg Q4H PRN Administration Pain Oxcarbazepine 300 mg 08/05/19 09:00 08/06/19 08:59 Trileptal PO 300 mg BID OTIS Administration Pantoprazole Sodium 40 mg 08/06/19 09:00 08/06/19 08:59 Protonix PO 40 mg DAILY OTIS Administration Prednisone 20 mg 08/06/19 09:00 08/06/19 08:59 Prednisone PO 20 mg DAILY OTIS Administration Sodium Chloride 10 ml 08/05/19 21:00 08/06/19 09:00 Flush - Normal Saline IVF Not Given Q12HR OTIS - Exam General Appearance: NAD, awake alert General - other findings: obese Eye: PERRL, anicteric sclera ENT: normocephalic atraumatic, no oropharyngeal lesions Neck: supple, symmetric, no JVD, no thyromegaly Heart: RRR, no murmur, no gallops, no rubs Respiratory: CTAB, no wheezes, no rales, no ronchi Gastrointestinal - other findings: LLQ tenderness Extremities: no cyanosis, no clubbing, no edema Skin: normal turgor, no lesions, no rashes Neurological: cranial nerve grossly intact, normal sensation to touch, no focal deficits, no new deficit Hosp A/P - Plan CT abdomen: perforated diverticulitis This is 64 year old female who presented with perforated diverticulitis Perforated diverticulitis - continue IV zosyn - upgrade to full liquid diet per Dr. Francis, he will see her on Thursday Hypokalemia - potassium 3.1, recheck potassium level History of Crohn's disease - on prednisone
[2019-08-06 19:49] LABS: Potassium 3.3 mmol/L (3.5-5.1)
[2019-08-06] MEDS: Loratadine 10 MG TAB PO SCH (21:22)
[2019-08-07 05:06] LABS: #Eosinphils 0.1 thou/uL (0.0-0.7); #Lymphocytes 2.1 thou/uL (1.20-3.40); #Monocytes 0.5 thou/uL (0.11-0.59); #Neutrophils 2.8 thou/uL (1.40-6.50); %Basophils 0.7 % (0.0-1.0); %Eosinophils 2.4 % (0.0-10.0); %Lymphocytes 37.5 % (21.0-51.0); %Monocytes 8.6 % (0.0-10.0); %Neutrophils 50.8 % (42.0-75.0); Hemoglobin 12.3 g/dL (12.0-16.0); Mean Corpuscular HGB CONC 33.8 g/dL (32.0-36.0); Mean Corpuscular Hemoglobin 32.4 pg (27.0-31.0); Mean Platelet Volume 6.9 fL (7.4-10.4); Platelet Count 259 thou/uL (130-400); RBC Distribution Width 12.5 % (11.5-14.5); Red Blood Cell (RBC) Count 3.79 mill/uL (4.20-5.40); White Blood Cell (WBC) Count 5.5 thou/uL (4.8-10.8)
[2019-08-07 05:31] LABS: Anion Gap 10 mmol/L (10-20); BUN (Urea Nitrogen) 4 mg/dL (9.8-20.1); Calc. Creatinine Clearance 118 mL/min (70-130); Calcium 8.7 mg/dL (7.8-10.44); Carbon Dioxide 23 mmol/L (23-31); Chloride 111 mmol/L (98-107); Estimated GFR-MDRD 78; Glucose 123 mg/dL (80-115); Potassium 3.3 mmol/L (3.5-5.1); Sodium 141 mmol/L (136-145)
[2019-08-07] MEDS: Piperacillin/Tazobactam 3.375 GM in Sodium Chloride 0.9% 100 ML IVPB SCH (05:34)
[2019-08-07] MEDS ORDERED: Potassium Chloride 20 MEQ TAB PO SCH (08:45)
[2019-08-07] MEDS: Escitalopram Oxalate 10 mg Tablet PO SCH (09:00)
[2019-08-07] MEDS: Lisinopril 10 MG TAB PO SCH (09:01)
[2019-08-07] MEDS: OXcarbazepine 300 MG TAB PO SCH (09:01)
[2019-08-07] MEDS: Enoxaparin Sodium 30 MG/0.3 ML SYRINGE SC SCH (09:01)
[2019-08-07] MEDS: Pantoprazole 40 MG GRANULES PACKET PO SCH (09:01)
[2019-08-07] MEDS: predniSONE 20 MG TAB PO SCH (09:01)
[2019-08-07] MEDS: Fluticasone Propionate Nasal Spray 16 gm Bottle NASAL SCH (09:02)
[2019-08-07] MEDS: D5 1/2 NS w/20 mEq KCL 1,000 ML IV SCH (09:03)
--- NOTE | 2019-08-07 15:03 | DIS ---
DATE OF ADMISSION: 08/04/2019 DATE OF DISCHARGE: 08/06/2019 DISCHARGE DIAGNOSES: 1. Perforated diverticulitis 2. Hypokalemia 3. Leukocytosis. 4. Renal cyst 5. Fatty liver SECONDARY DISCHARGE DIAGNOSIS: Crohn disease. CONSULTATIONS: Dr. Aguilar Steiner of General Surgery. PROCEDURES: None. BRIEF HISTORY OF PRESENT ILLNESS: This is a 64-year-old female with a history of Crohn disease, recurrent diverticulitis, who presented to the emergency room with worsening lower abdominal pain associated with nausea and vomiting. The patient does have a history of chronic diarrhea as an outpatient with at least 4 loose stools per day and sometimes more. However, her diarrhea had worsened. She did not have a fever. She presented to the emergency room where she had a CT scan of her abdomen, which showed findings concerning for perforated diverticulitis. She was given Zosyn and admitted to the hospital. HOSPITAL COURSE: Perforated diverticulitis: The patient's white blood cell count improved from 12.9 to 7 with antibiotics. Her abdominal pain improved with antibiotics. She was initially made n.p.o. and then eventually upgraded to a soft diet on the , which she tolerated well. She will be discharged with soft diet and will follow up with Dr. Steiner from General Surgery in 2 weeks. She will continue Augmentin for 5 more days to complete a 7-day course of antibiotics. Hypokalemia: The patient's potassium was 3.3 on the day of discharge. She will be discharged with potassium supplements to take as needed if she has diarrhea. History of Crohn disease: The patient is on prednisone 20 mg daily. 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 Fatty liver/right renal cyst: This was noted on her CT scan of her abdomen. She should have this followed up as an outpatient. She was encouraged to lose weight. DISCHARGE PHYSICAL EXAMINATION: VITAL SIGNS: Temperature 98.6, heart rate 81, respiratory rate 16, O2 saturation 98% on room air, blood pressure 122/76. GENERAL: The patient is alert, awake, and oriented x3. She is morbidly obese. CVS: Regular rate and rhythm with no murmurs, rubs, or gallops. LUNGS: Clear to auscultation bilaterally. ABDOMEN: Positive bowel sounds, soft, nontender, nondistended. The patient reports usually at baseline she is tender in her left lower quadrant. EXTREMITIES: No edema. PERTINENT LABS: CBC 08/03: WBC 12.9 CBC 08/06: normal BMP 08/06: potassium 3.3. Rest of BMP unremarkable Total bilirubin 08/03: 1.3 LFTS 08/03: AST 24, ALT 39, ALP 50 IMAGING STUDIES: CT of abdomen and pelvis on 08/03 shows perforated sigmoid diverticulitis. No evidence for abscess. Diffuse fatty liver. Right renal cyst. Tiny nonobstructing left renal calculus in the inferior pole. DISPOSITION: Home. ACTIVITY: As tolerated. DIET: Low-fat diet. DISCHARGE MEDICATIONS: New prescriptions: 1. Augmentin 875 mg po q12 hours for total 7 days 2. Potassium 20 mg daily prn for diarrhea All other home meds were resumed. Please refer to discharge worksheet. DISCHARGE INSTRUCTIONS: The patient is to follow up with her PCP in a week and Dr. Steiner within 2 weeks. She should have a potassium level repeated in a week as well. Job ID: [id number] [facility]
[2019-08-07 15:39] VITALS: BP 122/78; TEMP 98.5
[2019-08-07] MEDS ORDERED: Amoxicillin/Potassium Clav 875 MG TAB PO SCH (21:00)
--- NOTE | 2019-08-09 16:04 | PQF ---
DATE: 08-09-19 ATTN: DR. ALESHA CYR Please exercise your independent, professional judgment in responding to the clarification form. Clinical indicators are provided on the bottom of this form for your review Please check appropriate box(s) to clarify if the following diagnosis has been ruled in or ruled out: SEPSIS [ X] Ruled in diagnosis [ ] Continue to treat [ ] Resolved [ ] Ruled out diagnosis [ ] Other diagnosis [ ] Unable to determine In addition, please specify: Present on Admission (POA): [ ] Yes [ ] No [ ] Unable to determine For continuity of documentation, please document condition throughout progress notes and discharge summary. Thank You. CLINICAL INDICATORS - SIGNS / SYMPTOMS / LABS / RESULTS AND LOCATION IN MR ER DX: 08-04-19: DIVERTICULITIS WITH PERFORATION H&P:08-04-19: ASSESSMENT: SEPSIS, ACUTE DIVERTICULITIS WITH MICROPERFORATION, HYPOKALEMIA, DEHYDRATION WBC: 08-04-19: 12.9 PULSE: ER: 104, 100 BP: ER: 93/64, 96/59 RISK FACTORS / RESULTS AND LOCATION IN MR: H&p: 08-04-19: RECURRENT DIVERTICULITIS, POLYNEUROPATHY, NAUSEA, VOMITING, ABD PAIN IN WITH SEPSIS AND ACUTE DIVERTICULITIS WITH PERFORATION, DEHYDRATION TREATMENTS / RESULTS AND LOCATION IN MR: H&P: START IV ZOSYN AND IVF ER NOTES 08-04-19: NS IVF, METRONIDAZOLE IV, CIPRO IV, PIPERACILLIN- TAZOBACTAM (This form is maintained as a part of the permanent medical record) 2014 [employer] All Rights Reserved [email or web address]
== END 2019-08-07 15:40 | disposition home or self-care (01) | DRG 872 ==
LOC: ERS 15:08 → SURG A 20:20
PROVIDERS: ADMIT Internal Medicine; ATTEND Internal Medicine
DX: A41.9 Sepsis, unspecified organism (principal); K57.80 Diverticulitis of intestine, part unspecified, with perforation and abscess without bleeding; K50.90 Crohn's disease, unspecified, without complications; E87.6 Hypokalemia; D72.829 Elevated white blood cell count, unspecified; N28.1 Cyst of kidney, acquired; K76.0 Fatty (change of) liver, not elsewhere classified; E66.01 Morbid (severe) obesity due to excess calories; G62.9 Polyneuropathy, unspecified; I10 Essential (primary) hypertension; F41.9 Anxiety disorder, unspecified; E86.0 Dehydration; J45.909 Unspecified asthma, uncomplicated; Z90.710 Acquired absence of both cervix and uterus; Z90.49 Acquired absence of other specified parts of digestive tract; Z88.1 Allergy status to other antibiotic agents; Z88.8 Allergy status to other drugs, medicaments and biological substances; Z87.891 Personal history of nicotine dependence
CPT/HCPCS: 36415; 80048; 80053; 83605; 85025; 96365; 96367; 96375; J0744; J1650; J2270; J2543; J3480; J3490; J7512

== ENCOUNTER 2019-08-26 14:18 | Outpatient (CLI) | payer OTHER ==
--- NOTE | 2019-08-26 15:03 | BD ---
DEXA bone density examination HISTORY: 64-year-old postmenopausal female for screening. Osteoporosis. COMPARISON: None FINDINGS: L1--bone mineral density 1.096 g/sq cm; T score 1.0 L2--bone mineral density 1.223 g/sq cm; T score 1.8 L3--bone mineral density 1.307 g/sq cm; T score 2.0 L4--bone mineral density 1.277 g/sq cm; T score 2.0 Total L1-L4--bone mineral density 1.234 g/sq cm; T score 1.7 Left femoral neck--bone mineral density0.959 g/sq cm; T score 1.0 Total proximal left femur--bone mineral density 1.117 g/sq cm ; T score 1.4 IMPRESSION: Mild osteopenia of the lumbar spine and left femoral neck indicating a 2 fold increased risk for frac ture.
--- NOTE | 2019-08-26 15:07 | MMO ---
Bilateral MAMMO Bilat Screen [facility]. CLINICAL HISTORY: Patient is 64 years old and is seen for screening. The patient has no family history of breast cancer. The patient has a history of uterine cancer at age 62. VIEWS: The views performed were: bilateral craniocaudal with tomosynthesis and bilateral mediolateral oblique with tomosynthesis. FILMS COMPARED: The present examination has been compared to prior imaging studies performed at [facility] on 07/16/2017 and 07/21/2018, and at [facility] on 06/18/2017. This study has been interpreted with the assistance of computer-aided detection. MAMMOGRAM FINDINGS: There are scattered fibroglandular densities. There are no suspicious masses, suspicious calcifications, or new areas of architectural distortion. IMPRESSION: THERE IS NO MAMMOGRAPHIC EVIDENCE OF MALIGNANCY. A ROUTINE FOLLOW-UP MAMMOGRAM IN 1 YEAR IS RECOMMENDED. THE RESULTS OF THIS EXAM WERE SENT TO THE PATIENT. ACR BI-RADS Category 1 - Negative MAMMOGRAPHY NOTE: 1. A negative mammogram report should not delay a biopsy if a dominant of clinically suspicious mass is present. 2. Approximately 10% to 15% of breast cancers are not detected by mammography. 3. Adenosis and dense breasts may obscure an underlying neoplasm. Reported by: BERTIN SHAH MD Electonically Signed: [id number]
== END 2019-08-26 14:19 | disposition home or self-care (01) ==
LOC: BICMAMMO 14:18
PROVIDERS: ATTEND Internal Medicine
DX: Z12.31 Encounter for screening mammogram for malignant neoplasm of breast (principal); Z13.820 Encounter for screening for osteoporosis; M85.89 Other specified disorders of bone density and structure, multiple sites; Z78.0 Asymptomatic menopausal state; Z85.42 Personal history of malignant neoplasm of other parts of uterus
CPT/HCPCS: 77063; 77067; 77080

== ENCOUNTER 2019-11-03 14:50 | Outpatient (CLI) | payer OTHER ==
--- NOTE | 2019-11-03 15:20 | RAD ---
Chest 2 views HISTORY: Fatigue. Cough. COMPARISON: 07/09/2018. FINDINGS: Cardiac silhouette and pulmonary vasculature are unremarkable. Mediastinum is midline. No confluent airspace consolidation, pneumothorax, or pleural fluid are evide nt. IMPRESSION : No abnormalities are demonstrated.
== END 2019-11-03 14:51 | disposition home or self-care (01) ==
LOC: BICRAD 14:50
PROVIDERS: ATTEND Internal Medicine
DX: R05 Cough (principal)
CPT/HCPCS: 71046

== ENCOUNTER 2019-12-29 13:03 | Outpatient (CLI) | payer OTHER ==
--- NOTE | 2019-12-29 15:22 | MRI ---
MRI lumbar spine noncontrast: HISTORY: Lumbar radiculopathy. Low back pain with numbness in both lower extremity. Burning sensation the left hip and left leg. COMPARISON: None FINDINGS: Appropriate T1 marrow signal intensity of the lumbar vertebra. Lumbar spine vertebral body height is maintained. No fracture. Intrinsic T1 and T2 hyperintensity at L1, L4 and T12 compatible with vertebral body hemangiomas. Appropriate signal intensity of the paraspinal muscles and solid organs. Right renal cortical cysts. Conus medullaris terminates at the inferior aspect of L1. T12-L1:Adequate disc hydration. No posterior disc abnormality. No significant central canal stenosis or significant neural foraminal narrowing L1-L2:Adequate disc hydration. No posterior disc abnormality. No [place] central canal stenosis or s ignificant neural foraminal narrowing L2-L3:Disc desiccation without severe loss of disc space height. Broad-based disc bulge, ligament fla vum thickening and facet hypertrophy. There is minimal inferior disc extrusion. Moderate central canal stenosis. Mild bilateral foraminal narrowing due to disc material L3-L4:Adequate disc hydration. Left right paracentral disc bulges. There is ligament flavum thickenin g and facet hypertrophy. Mild central canal stenosis. Mild bilateral neural foraminal narrowing. L4-L5:Adequate disc hydration. Broad-based disc bulge with minimal inferior and superior disc extrusi on. There is ligamentum flavum thickening and moderate facet hypertrophy. No significant central canal stenosis. Bilaterally, neural foramina are patent. L5-S1:Disc desiccation without significant loss of disc space height. There is disc desiccation with a central/right subareolar disc herniation. There is encroachment upon the right subarticular zone. There is contact upon the traversing right S1 nerve root without complete obscuration. Left subarticu lar zone is patent. No significant stenosis of the thecal sac. Mild right and left neural foraminal narrowing. 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
== END 2019-12-29 13:04 | disposition home or self-care (01) ==
LOC: BICMRI 13:03
PROVIDERS: ATTEND Internal Medicine
DX: M47.26 Other spondylosis with radiculopathy, lumbar region (principal)
CPT/HCPCS: 72148

== ENCOUNTER 2020-08-25 10:33 | Emergency (ER) | payer MEDICARE, OTHER ==
[2020-08-25] MEDS ORDERED: Morphine 4 MG/ML VIAL ONE (11:36)
== END 2020-08-25 11:55 | disposition home or self-care (01) ==
LOC: ERS 10:33
DX: M79.7 Fibromyalgia (principal); M79.602 Pain in left arm; M79.601 Pain in right arm; K50.90 Crohn's disease, unspecified, without complications; Z87.891 Personal history of nicotine dependence
CPT/HCPCS: 96372; 99283; J2270

== ENCOUNTER 2020-08-27 11:24 | Outpatient (CLI) | payer MEDICARE, OTHER | END 2020-08-27 11:25 | disposition home or self-care (01) | LOC: BICMAMMO 11:24 | PROVIDERS: ATTEND Internal Medicine | DX: Z12.31 Encounter for screening mammogram for malignant neoplasm of breast (principal); Z85.42 Personal history of malignant neoplasm of other parts of uterus | CPT/HCPCS: 77063; 77067 ==

== ENCOUNTER 2020-09-12 13:40 | Outpatient (CLI) | payer MEDICARE, OTHER | END 2020-09-12 13:41 | disposition home or self-care (01) | LOC: BICRAD 13:40 | PROVIDERS: ATTEND Internal Medicine Rheumatology | DX: M46.1 Sacroiliitis, not elsewhere classified (principal) | CPT/HCPCS: 72202 ==

== ENCOUNTER 2021-08-28 13:59 | Outpatient (CLI) | payer MEDICARE, OTHER | END 2021-08-28 14:00 | disposition home or self-care (01) | LOC: BICMAMMO 13:59 | PROVIDERS: ATTEND Internal Medicine | DX: Z12.31 Encounter for screening mammogram for malignant neoplasm of breast (principal); Z13.820 Encounter for screening for osteoporosis; Z78.0 Asymptomatic menopausal state; Z85.42 Personal history of malignant neoplasm of other parts of uterus | CPT/HCPCS: 77063; 77067; 77080 ==

== ENCOUNTER 2021-11-02 06:25 | Emergency (ER) | payer MEDICARE, OTHER ==
[2021-11-02] MEDS ORDERED: Ketorolac Tromethamine 30 MG/ML VIAL ONE (07:36)
[2021-11-02] MEDS ORDERED: diphenhydrAMINE 50 MG/ML VIAL ONE (07:36)
[2021-11-02] MEDS ORDERED: Prochlorperazine 10 MG/2 ML VIAL IVP SCH (08:00)
[2021-11-02 08:05] LABS: #Monocytes 0.7 thou/uL (0.11-0.59); #Neutrophils 3.6 thou/uL (1.40-6.50); %Basophils 0.7 % (0.0-1.0); %Eosinophils 0.6 % (0.0-10.0); %Lymphocytes 17.9 % (21.0-51.0); %Monocytes 13.2 % (0.0-10.0); %Neutrophils 67.6 % (42.0-75.0); Hemoglobin 11.7 g/dL (12.0-16.0); Mean Corpuscular HGB CONC 33.4 g/dL (32.0-36.0); Mean Corpuscular Hemoglobin 30.7 pg (27.0-31.0); Mean Corpuscular Volume 91.8 fL (78.0-98.0); Mean Platelet Volume 7.3 fL (7.4-10.4); Platelet Count 212 thou/uL (130-400); Red Blood Cell (RBC) Count 3.82 mill/uL (4.20-5.40); White Blood Cell (WBC) Count 5.3 thou/uL (4.8-10.8)
[2021-11-02 08:14] LABS: ALT (SGPT) 16 U/L (8-55); AST (SGOT) 20 U/L (5-34); Albumin 3.9 g/dL (3.4-4.8); Alkaline Phosphatase 70 U/L (40-110); Anion Gap 16 mmol/L (10-20); BUN (Urea Nitrogen) 9 mg/dL (9.8-20.1); Bilirubin, Total 0.5 mg/dL (0.2-1.2); Calc. Creatinine Clearance 0 mL/min (70-130); Calcium 9.1 mg/dL (7.8-10.44); Carbon Dioxide 22 mmol/L (23-31); Chloride 101 mmol/L (98-107); Estimated GFR 77; Globulin 2.9 g/dL (2.4-3.5); Glucose 108 mg/dL (80-115); Potassium 3.8 mmol/L (3.5-5.1); Protein, Total 6.8 g/dL (5.8-8.1); Sodium 135 mmol/L (136-145)
== END 2021-11-02 09:45 | disposition home or self-care (01) ==
LOC: ERS 06:25
DX: U07.1 COVID-19 (principal); G43.909 Migraine, unspecified, not intractable, without status migrainosus; G62.9 Polyneuropathy, unspecified; M79.7 Fibromyalgia; J45.998 Other asthma; Z87.891 Personal history of nicotine dependence; Z79.899 Other long term (current) drug therapy; Z85.42 Personal history of malignant neoplasm of other parts of uterus; Z87.19 Personal history of other diseases of the digestive system
CPT/HCPCS: 36415; 80053; 85025; 94760; 96361; 96374; 96375; J0780; J1200; J1885

== ENCOUNTER 2022-05-07 17:20 | Emergency (ER) | payer MEDICARE ==
[~2022-05-07 17:20] MED LIST changes: -ISOVUE-370 76%-LOCM 1 ML ONE; +Iopamidol-370 76% 500 ML 1 ML ONE
[2022-05-07] MEDS ORDERED: Ondansetron PF 4 MG/2 ML Vial ONE (18:10)
[2022-05-07] MEDS ORDERED: Morphine 4 MG/ML VIAL ONE (18:10)
[2022-05-07 18:17] LABS: Mean Corpuscular HGB CONC 33.1 g/dL (32.0-36.0); Mean Corpuscular Hemoglobin 30.1 pg (27.0-31.0); Mean Corpuscular Volume 91.1 fl (78.0-98.0); Mean Platelet Volume 7.9 fL (7.4-10.4); Platelet Count 256 10x3/uL (130-400); RBC Distribution Width 12.7 % (11.5-14.5); Red Blood Cell (RBC) Count 4.31 mill/uL (4.20-5.40); White Blood Cell (WBC) Count 7.3 10x3/uL (4.8-10.8)
[2022-05-07 18:34] LABS: Band 1 % (5-11); Eosinophils 1 % (0-10); Lymphocytes 24 % (21-51); MDiff Complete? YES; Monocytes 7 % (0-10); Neutrophil 67 % (42-75); Platelet Morphology Comment Appears Adequate; RBC Morphology Normal
[2022-05-07 18:37] LABS: ALT (SGPT) 28 U/L (8-55); AST (SGOT) 28 U/L (5-34); Albumin 4.1 g/dL (3.4-4.8); Alkaline Phosphatase 85 U/L (40-110); Anion Gap 13 mmol/L (10-20); BUN (Urea Nitrogen) 13 mg/dL (9.8-20.1); Bilirubin, Total 0.9 mg/dL (0.2-1.2); CK (CPK) 179 U/L (29-168); Calc. Creatinine Clearance 0 mL/min (70-130); Calcium 9.5 mg/dL (7.8-10.44); Carbon Dioxide 25 mmol/L (23-31); Chloride 103 mmol/L (98-107); Estimated GFR 55; Globulin 3.4 g/dL (2.4-3.5); Glucose 91 mg/dL (80-115); Lipase 36 U/L (8-78); Potassium 3.3 mmol/L (3.5-5.1); Protein, Total 7.5 g/dL (5.8-8.1); Sodium 138 mmol/L (136-145)
== END 2022-05-07 20:42 | disposition home or self-care (01) ==
LOC: ERS 17:20
DX: K52.9 Noninfective gastroenteritis and colitis, unspecified (principal); Z87.891 Personal history of nicotine dependence
CPT/HCPCS: 36415; 74177; 80053; 82550; 83690; 85025; 96361; 96374; J2270; J2405; Q9967

== ENCOUNTER 2022-06-17 10:54 | Day surgery (SDC) | payer MEDICARE ==
[2022-06-16 09:42] VITALS: BMI 35.2
[2022-06-17] MEDS ORDERED: Phenylephrine 2.5% Ophth Soln 5 ML BOT ONE (11:25)
== END 2022-06-17 12:56 | disposition home or self-care (01) ==
LOC: SDC 10:54
PROVIDERS: ATTEND Ophthalmology
PROC: 085K3ZZ Destruction of Left Lens, Percutaneous Approach (ICD-10-PCS; principal; 2022-06-17)
PROC: 085J3ZZ Destruction of Right Lens, Percutaneous Approach (ICD-10-PCS; 2022-06-17)
DX: H26.493 Other secondary cataract, bilateral (principal); I10 Essential (primary) hypertension; J45.909 Unspecified asthma, uncomplicated; Z79.899 Other long term (current) drug therapy; Z88.1 Allergy status to other antibiotic agents; Z91.018 Allergy to other foods

== ENCOUNTER 2022-12-23 14:25 | Emergency (ER) | payer MEDICARE ==
[~2022-12-23 14:25] MED LIST changes: -Iopamidol-370 76% 500 ML 1 ML ONE; +Iopamidol-370 76% 500 ML MDV (1 ML CHARGE) ONE
[2022-12-23 15:05] LABS: #Eosinphils 0.1 thou/uL (0.0-0.7); #Monocytes 0.5 thou/uL (0.11-0.59); #Neutrophils 4.4 thou/uL (1.40-6.50); %Basophils 0.3 % (0.0-1.0); %Eosinophils 0.9 % (0.0-10.0); %Lymphocytes 27.3 % (21.0-51.0); %Monocytes 7.6 % (0.0-10.0); %Neutrophils 63.8 % (42.0-75.0); Hematocrit 35.4 % (36.0-47.0); Mean Corpuscular HGB CONC 33.9 g/dL (32.0-36.0); Mean Corpuscular Hemoglobin 30.5 pg (27.0-31.0); Mean Corpuscular Volume 90.1 fl (78.0-98.0); Mean Platelet Volume 9.9 fL (7.4-10.4); Platelet Count 295 10x3/uL (130-400); RBC Distribution Width 13.8 % (11.5-14.5); Red Blood Cell (RBC) Count 3.93 mill/uL (4.20-5.40); White Blood Cell (WBC) Count 6.9 10x3/uL (4.8-10.8)
[2022-12-23 15:30] LABS: ALT (SGPT) 22 U/L (8-55); AST (SGOT) 21 U/L (5-34); Albumin 4.1 g/dL (3.4-4.8); Alkaline Phosphatase 81 U/L (40-110); Anion Gap 13 mmol/L (10-20); BUN (Urea Nitrogen) 10 mg/dL (9.8-20.1); Bilirubin, Total 0.6 mg/dL (0.2-1.2); Calc. Creatinine Clearance 0 mL/min (70-130); Calcium 9.6 mg/dL (7.8-10.44); Carbon Dioxide 25 mmol/L (23-31); Chloride 106 mmol/L (98-107); Estimated GFR 56; Glucose 94 mg/dL (80-115); Lipase 43 U/L (8-78); Potassium 3.5 mmol/L (3.5-5.1); Protein, Total 7.1 g/dL (5.8-8.1); Sodium 140 mmol/L (136-145)
[2022-12-23] MEDS ORDERED: Ondansetron PF 4 MG/2 ML Vial ONE ×2 (17:26→19:31)
[2022-12-23] MEDS ORDERED: Dicyclomine 20 MG TAB ONE (19:31)
[2022-12-23 19:34] LABS: Bacteria/HPF 3+ HPF (None Seen); Bilirubin Negative (Negative); Blood, Urine Negative (Negative); CAUTI Indications for Culture Dysuria,urgency,freq; Clarity Clear (Clear); Glucose, Urine (Dipstick) Normal (Negative); Ketone, Urine Negative (Negative); Leukocyte 500 Leu/uL (Negative); Nitrite Negative (Negative); Protein, Urine (Dipstick) Negative (Neg-Trace); RBC/HPF 0-3 HPF (0-3); Specific Gravity, Urine 1.011 (1.002-1.036); Squamous Epithelial 0-3 HPF (0-3); Urobilinogen Normal mg/dL (Less than 2); WBC/HPF 21-50 HPF (0-3)
[2022-12-23 19:37] LABS: Urine Culture Reflex Yes Yes
== END 2022-12-23 21:41 | disposition home or self-care (01) ==
LOC: ERS 14:25
DX: N39.0 Urinary tract infection, site not specified (principal); I10 Essential (primary) hypertension; E78.5 Hyperlipidemia, unspecified; Z87.891 Personal history of nicotine dependence; Z79.899 Other long term (current) drug therapy
CPT/HCPCS: 36415; 74177; 80053; 81001; 83690; 84443; 85025; 87077; 87086; 87186; 96374; 96376; J2405; Q9967

== ENCOUNTER 2023-05-06 13:07 | Outpatient (CLI) | payer MEDICARE | END 2023-05-06 13:08 | disposition home or self-care (01) | LOC: MRI 13:07 | PROVIDERS: ATTEND Internal Medicine | DX: R41.3 Other amnesia (principal); R90.89 Other abnormal findings on diagnostic imaging of central nervous system; I10 Essential (primary) hypertension; D64.9 Anemia, unspecified; R73.03 Prediabetes; R82.90 Unspecified abnormal findings in urine; R68.89 Other general symptoms and signs | CPT/HCPCS: 36415; 70551; 80053; 81001; 82728; 83036; 83540; 83550; 84443; 85025 ==

== ENCOUNTER 2023-08-19 07:02 | Day surgery (SDC) | payer MEDICARE ==
[2023-08-19 08:12] VITALS: BP 151/75; TEMP 98.5
[2023-08-19 09:40] LABS: CSF Source CSF; Clarity Clear (Clear); Tube # 4
[2023-08-19 10:10] LABS: CSF, Protein 57.5 mg/dL (15-40)
[2023-08-21 01:12] LABS: HSV 1 - DNA, CSF Negative (Negative); HSV 2 - DNA, CSF Negative (Negative)
== END 2023-08-19 10:15 | disposition home or self-care (01) ==
LOC: RAD 07:02
PROVIDERS: ATTEND Psychiatry & Neurology Neurology
PROC: 009U3ZZ Drainage of Spinal Canal, Percutaneous Approach (ICD-10-PCS; principal; 2023-08-19)
PROC: B01BZZZ Fluoroscopy of Spinal Cord (ICD-10-PCS; 2023-08-19)
DX: G37.9 Demyelinating disease of central nervous system, unspecified (principal); R93.89 Abnormal findings on diagnostic imaging of other specified body structures; R25.1 Tremor, unspecified; J45.909 Unspecified asthma, uncomplicated; K50.90 Crohn's disease, unspecified, without complications; G47.33 Obstructive sleep apnea (adult) (pediatric); J30.9 Allergic rhinitis, unspecified; G43.909 Migraine, unspecified, not intractable, without status migrainosus; H26.9 Unspecified cataract; K21.9 Gastro-esophageal reflux disease without esophagitis; Z90.49 Acquired absence of other specified parts of digestive tract; Z98.42 Cataract extraction status, left eye; Z98.890 Other specified postprocedural states; Z87.891 Personal history of nicotine dependence; Z79.899 Other long term (current) drug therapy
CPT/HCPCS: 62270; 82040; 82042; 82784; 82945; 83873; 83916; 84157; 86612; 86635; 86698; 87070; 87205; 87529; 87798; 87899; 89051

== ENCOUNTER 2023-09-16 10:19 | Outpatient (CLI) | payer MEDICARE | END 2023-09-16 10:20 | disposition home or self-care (01) | LOC: BICRAD 10:19 | PROVIDERS: ATTEND Internal Medicine | DX: M79.645 Pain in left finger(s) (principal); M25.531 Pain in right wrist; S52.501D Unspecified fracture of the lower end of right radius, subsequent encounter for closed fracture with routine healing ==

== ENCOUNTER 2023-10-06 12:43 | Outpatient (CLI) | payer MEDICARE | END 2023-10-06 12:44 | disposition home or self-care (01) | LOC: BICMRI 12:43 | PROVIDERS: ATTEND Orthopaedic Surgery Hand Surgery | DX: S52.501D Unspecified fracture of the lower end of right radius, subsequent encounter for closed fracture with routine healing (principal); S63.591A Other specified sprain of right wrist, initial encounter; S52.601D Unspecified fracture of lower end of right ulna, subsequent encounter for closed fracture with routine healing ==

== ENCOUNTER 2023-10-22 12:37 | Outpatient (CLI) | payer MEDICARE | END 2023-10-22 12:38 | disposition home or self-care (01) | LOC: MRI 12:37 | PROVIDERS: ATTEND Orthopaedic Surgery Hand Surgery | DX: M20.022 Boutonniere deformity of left finger(s) (principal); R60.9 Edema, unspecified ==

== ENCOUNTER 2023-10-23 12:58 | Outpatient (CLI) | payer MEDICARE | END 2023-10-23 12:59 | disposition home or self-care (01) | LOC: BICMAMMO 12:58 | PROVIDERS: ATTEND Internal Medicine | DX: Z12.31 Encounter for screening mammogram for malignant neoplasm of breast (principal); Z13.820 Encounter for screening for osteoporosis; Z78.0 Asymptomatic menopausal state; Z85.42 Personal history of malignant neoplasm of other parts of uterus | CPT/HCPCS: 77063; 77067; 77080 ==

== ENCOUNTER 2024-11-14 11:00 | Inpatient (IN) | payer MEDICARE ==
[2024-11-25 13:14] VITALS: BMI 33.5
[2024-12-05] MEDS ORDERED: CEFAZOLIN 2 GM VIAL ONE (06:08)
[2024-12-05] MEDS ORDERED: metroNIDAZOLE 500 MG (100 mL) BAG ONE (06:08)
[2024-12-05] MEDS ORDERED: Acetaminophen 325 MG TAB ONE (06:08)
[2024-12-05] MEDS ORDERED: Heparin 5,000 UNITS/ML VIAL ONE (06:08)
[2024-12-05] MEDS ORDERED: Bupivacaine 0.25% HCL 30 ML VIAL ONE (06:20)
[2024-12-05] MEDS ORDERED: Rocuronium Bromide 10 MG/ML (10ML VIAL) ONE (07:09)
[2024-12-05] MEDS ORDERED: Lidocaine 1% PF 5 ML VIAL ONE (07:09)
[2024-12-05] MEDS ORDERED: fentaNYL PF 100 MCG/2 ML SYRINGE ONE (07:10)
[2024-12-05] MEDS ORDERED: PROPOFOL 20 ML ONE (07:10)
[2024-12-05] MEDS ORDERED: Ondansetron PF 4 MG/2 ML Vial ONE (07:15)
[2024-12-05] MEDS ORDERED: HYDROmorphone 2 MG/ML VIAL ONE (08:20)
[2024-12-05] MEDS ORDERED: Glycopyrrolate 0.2 MG/ML 5 ML SYRINGE ONE (08:56)
[2024-12-05] MEDS ORDERED: NEOSTIGMINE 3 MG/3 ML SYRINGE ONE (08:56)
[2024-12-05] MEDS ORDERED: Ondansetron PF 4 MG/2 ML Vial IVP PRN (09:35)
[2024-12-05] MEDS ORDERED: hydrALAZINE 20 MG/ML VIAL SLOW IVP PRN (09:35)
[2024-12-05] MEDS ORDERED: HYDROcodone/Acetaminophen 5/325 mg Tablet PO PRN ×2 (09:38)
[2024-12-05] MEDS ORDERED: HYDROmorphone 0.5 MG/0.5 ML SYRINGE ONE (09:57)
[2024-12-05] MEDS: Pregabalin 50 MG CAP PO SCH (22:13)
[2024-12-06 05:08] LABS: #Basophils Less than 0.03 10x3/uL (0.0-0.2); #Eosinophils Less than 0.03 10x3/uL (0.0-0.7); #Monocytes 0.76 10x3/uL (0.11-0.59); #Neutrophils 7.41 10x3/uL (1.40-6.50); %Basophils 0.1 % (0.0-1.0); %Eosinophils 0.0 % (0.0-10.0); %Lymphocytes 12.8 % (21.0-51.0); %Monocytes 8.1 % (0.0-10.0); %Neutrophils 78.7 % (42.0-75.0); Hematocrit 34.0 % (36.0-47.0); Hemoglobin 11.5 g/dL (12.0-16.0); Mean Corpuscular Hemoglobin 30.3 pg (27.0-31.0); Mean Corpuscular Volume 89.5 fL (78.0-98.0); Platelet Count 216 10x3/uL (130-400); Red Blood Cell (RBC) Count 3.80 mill/uL (4.20-5.40); White Blood Cell (WBC) Count 9.41 10x3/uL (4.8-10.8)
[2024-12-06 05:33] LABS: Anion Gap 11 mmol/L (10-20); BUN (Urea Nitrogen) 10 mg/dL (9.8-20.1); Calc. Creatinine Clearance 90 mL/min (70-130); Calcium 8.3 mg/dL (7.8-10.44); Carbon Dioxide 26 mmol/L (23-31); Chloride 107 mmol/L (98-107); Glucose 117 mg/dL (80-115); Potassium 3.2 mmol/L (3.5-5.1); Sodium 141 mmol/L (136-145)
[2024-12-06] MEDS ORDERED: Pantoprazole 40 MG GRANULES PACKET PO SCH (09:00)
[2024-12-06] MEDS ORDERED: Non-Formulary Item 1 EACH (Losartan Potassium [Losartan Potassium] 100 MG Tablet) PO SCH (09:00)
[2024-12-06] MEDS: Losartan 25 MG TAB PO SCH (09:36)
[2024-12-06] MEDS: Pantoprazole 40 MG DR.TAB PO SCH (09:36)
[2024-12-06] MEDS: Enoxaparin 40 MG (0.4 mL) SYRINGE SC SCH (09:37)
[2024-12-07] MEDS: Milk Of Magnesia 30 ML UDCUP PO SCH (06:08)
[2024-12-07 15:50] VITALS: BP 124/75; TEMP 98.3
== END 2024-12-07 18:30 | disposition home or self-care (01) | DRG 331 ==
LOC: SURG A 12-05 05:53
PROVIDERS: ADMIT Surgery; ATTEND Surgery
PROC: 0DBN4ZZ Excision of Sigmoid Colon, Percutaneous Endoscopic Approach (ICD-10-PCS; principal; 2024-12-05)
PROC: 8E0W4CZ Robotic Assisted Procedure of Trunk Region, Percutaneous Endoscopic Approach (ICD-10-PCS; 2024-12-05)
PROC: 3E033XZ Introduction of Vasopressor into Peripheral Vein, Percutaneous Approach (ICD-10-PCS; 2024-12-05)
DX: K57.20 Diverticulitis of large intestine with perforation and abscess without bleeding (principal)
CPT/HCPCS: 36415; 36416; 80048; 85025; 88307; J0169; J0665; J1100; J1171; J1644; J1650; J2250; J2405; J2704; J7030; J7620; S2900

== ENCOUNTER 2024-11-25 12:50 | Outpatient (CLI) | payer MEDICARE ==
[2024-11-25 14:39] LABS: #Basophils 0.03 10x3/uL (0.0-0.2); #Eosinophils 0.04 10x3/uL (0.0-0.7); #Monocytes 0.63 10x3/uL (0.11-0.59); #Neutrophils 5.02 10x3/uL (1.40-6.50); %Basophils 0.4 % (0.0-1.0); %Eosinophils 0.5 % (0.0-10.0); %Lymphocytes 27.3 % (21.0-51.0); %Monocytes 8.0 % (0.0-10.0); %Neutrophils 63.4 % (42.0-75.0); Hematocrit 41.0 % (36.0-47.0); Hemoglobin 13.6 g/dL (12.0-16.0); Mean Corpuscular Hemoglobin 30.2 pg (27.0-31.0); Mean Corpuscular Volume 91.1 fL (78.0-98.0); Platelet Count 268 10x3/uL (130-400); Red Blood Cell (RBC) Count 4.50 mill/uL (4.20-5.40); White Blood Cell (WBC) Count 7.91 10x3/uL (4.8-10.8)
[2024-11-25 15:10] LABS: Anion Gap 15 mmol/L (10-20); BUN (Urea Nitrogen) 15 mg/dL (9.8-20.1); Calc. Creatinine Clearance 0 mL/min (70-130); Calcium 9.4 mg/dL (7.8-10.44); Carbon Dioxide 23 mmol/L (23-31); Chloride 106 mmol/L (98-107); Glucose 97 mg/dL (80-115); Potassium 3.1 mmol/L (3.5-5.1); Sodium 141 mmol/L (136-145)
== END 2024-11-25 12:51 | disposition home or self-care (01) ==
LOC: LABBT 12:50
PROVIDERS: ATTEND Surgery
DX: Z01.818 Encounter for other preprocedural examination (principal); K57.92 Diverticulitis of intestine, part unspecified, without perforation or abscess without bleeding
CPT/HCPCS: 80048; 83036; 85025; 93005; 93010

== ENCOUNTER 2024-12-26 12:38 | Outpatient (CLI) | payer MEDICARE | END 2024-12-26 12:39 | disposition home or self-care (01) | LOC: BICMAMMO 12:38 | PROVIDERS: ATTEND Obstetrics & Gynecology | DX: Z12.31 Encounter for screening mammogram for malignant neoplasm of breast (principal); Z85.42 Personal history of malignant neoplasm of other parts of uterus | CPT/HCPCS: 77063; 77067 ==